=== PATIENT | female | born 1960 | race Caucasian/White ===

== ENCOUNTER 2017-09-17 14:18 | Inpatient (IN) | payer BC ==
[2017-09-17] MEDS ORDERED: ONDANSETRON 4 MG/2 ML VIAL IVPUSH ONE (14:32)
--- NOTE | 2017-09-17 14:44 | PDOC ---
Attending Attestation - Resident Resident Name: Gregory Trejo - ED Attending Attestation I have performed the following: I have examined & evaluated the patient, The case was reviewed & discussed with the resident, I agree w/resident's findings & plan, Exceptions are as noted - HPI HPI: 09/17/17 16:22 57 years old with no known past medical history seen in emergency department earlier today for severe back pain with normal labs negative CTA return to home developed lightheadedness dizziness headache and near syncope return to the emergency department. Symptoms occurred at rest no clear exacerbating or alleviating factors patient currently asymptomatic - Physicial Exam PE: 09/17/17 16:23 Vitals: Triage Vital signs reviewed General Appearance: no acute distress, well nourished well developed, Head: Atraumatic, Eyes: Pupils equal reactive round, extraocular movement intact Neck: Supple;No Nucal rigidity Chest Wall: Nontender Cardiac: Regular rate and rhythym, no murmurs, no rubs, no gallops, Lungs: Clear to auscultation bilateral, good air movement bilaterally, Abdomen: Soft, non distended, normal bowel sounds, non tender to palpation Extremities: Full range of motion to all extremities, no cyanosis, clubbing, or edema Skin: Warm and dry, no rashes or lesions, no rash, no petechiae Neuro: AOX3; Cranial Nerves 2-12 grossly intact, Strength intact to all extremities, Sensation intact to all extremities,gait normal Psych: normal mood, normal affect - Medical Decision Making 09/17/17 16:24 Second visit to the emergency department today. Patient again noted to be hypertensive. We'll treat hypertension with IV labetalol will observe overnight for hydration and further management of near syncope. Repeat examination normal neurologic examination still with some back discomfort but low suspicion for acute surgical pathology given previously negative CTA. Repeat EKG no ST elevations no T-wave inversions incomplete right bundle-branch biphasic T-wave inversion V3 Interpreted by me
--- NOTE | 2017-09-17 15:05 | PDOC ---
History of Present Illness - General Chief Complaint: Nausea Stated Complaint: HIGH BLOOD PRESSURE Time Seen by Provider: 09/17/17 14:31 History Source: Patient Exam Limitations: No Limitations - History of Present Illness Initial Comments: 09/17/17 14:33 Patient is a 57F with no significant medical history here today complaining of nausea and vomiting. She was seen earlier in the ED for back pain and hypertension. Patient was evaluated with cbc, cmp, trop, ekg, cxr, cta abdomen. All tests were normal. Patient was given morphine in the ED in the beginning of her visit. Patient states that she felt dizzy with a headache, then vomited. She states that she now feels fine. Denies chest pain, shortness of breath. States that she's still having back pain. Past History - Past Medical History Allergies/Adverse Reactions: Allergies Allergy/AdvReac Type Severity Reaction Status Date / Time No Known Allergies Allergy Verified 09/17/17 07:34 Home Medications: Ambulatory Orders NK [No Known Home Medication] 09/17/17 COPD: No - Suicide/Smoking/Psychosocial Hx Smoking History: Never smoked Have you smoked in the past 12 months: No Information on smoking cessation initiated: No Hx Alcohol Use: No Drug/Substance Use Hx: No Substance Use Type: None Review of Systems - Review of Systems Comments:: 09/17/17 15:05 GENERAL/CONSTITUTIONAL: No fever or chills. HEAD, EYES, EARS, NOSE AND THROAT: No change in vision. No sore throat. CARDIOVASCULAR: No chest pain or shortness of breath RESPIRATORY: No cough, wheezing, or hemoptysis. GASTROINTESTINAL: Positive for nausea, vomiting. Negative for diarrhea or constipation. GENITOURINARY: No dysuria, frequency, or change in urination. MUSCULOSKELETAL: No joint or muscle swelling or pain. Positive for back pain. SKIN: No rash NEUROLOGIC: No headache, vertigo, loss of consciousness, or change in strength/ sensation. HEMATOLOGIC/LYMPHATIC: No anemia, easy bleeding, or history of blood clots. ALLERGIC/IMMUNOLOGIC: No hives or skin allergy. *Physical Exam - Vital Signs Last Vital Signs Temp Pulse Resp BP Pulse Ox 97.1 F L 85 20 200/103 100 09/17/17 14:29 09/17/17 14:29 09/17/17 14:29 09/17/17 14:29 09/17/17 14:29 - Physical Exam Comments: 09/17/17 15:06 GENERAL: Awake, alert, and fully oriented, in no acute distress HEAD: No signs of trauma, normocephalic, atraumatic EYES: PERRLA, EOMI, sclera anicteric, conjunctiva clear ENT: Auricles normal inspection, hearing grossly normal, nares patent, oropharynx clear without exudates. Moist mucosa LUNGS: No distress, speaks full sentences, clear to auscultation bilaterally HEART: Regular rate and rhythm, normal S1 and S2, no murmurs, rubs or gallops, peripheral pulses normal and equal bilaterally. ABDOMEN: Soft, nontender, normoactive bowel sounds. No guarding, no rebound. No masses EXTREMITIES: Normal inspection, Normal range of motion, no edema. No clubbing or cyanosis. NEUROLOGICAL: Cranial nerves II through XII grossly intact. Normal speech, no focal sensorimotor deficits SKIN: Warm, Dry, normal turgor, no rashes or lesions noted. ED Treatment Course - LABORATORY CBC & Chemistry Diagram: 09/17/17 18:20 Medical Decision Making - Medical Decision Making 09/17/17 15:06 Patient is 57F with no significant medical history here today with hypertension , nausea, vomiting, back pain. Vital signs notable for hypertension to 200 systolic. Patient is bounce back who has already received large workup. Will evaluate with EKG, start IV, and give zofran. Will obs. Headache resolved. EKG shows normal sinus rhythm with RSR pattern. QRS/NE/QTc normal. No ST elevation/depression. No significant t wave abnormalities. When compared to EKG from earlier today, only change is t wave pattern in V3, most likely due to lead placement. Will admit to hospitalist, will give 10mg labetalol for HTN. *DC/Admit/Observation/Transfer Diagnosis at time of Disposition: Vomiting - Discharge Dispostion Condition at time of disposition: Stable Admit: Yes - Referrals - Patient Instructions - Post Discharge Activity
[2017-09-17] MEDS ORDERED: SODIUM CHLORIDE 1,000 ML IV STA (15:11)
[2017-09-17] MEDS ORDERED: ONDANSETRON 4 MG/2 ML VIAL ONE (15:18)
[2017-09-17] MEDS ORDERED: LABETALOL HCL 5 MG/1 ML (100MG/20 ML VIAL) IVPUSH ONE ×2 (15:32→19:06)
[2017-09-17] MEDS ORDERED: LABETALOL HCL 5 MG/1 ML (200MG/40ML VIAL) IVPB ONE (15:58)
[2017-09-17] MEDS ORDERED: ACETAMINOPHEN 325 MG TABLET (FP) PO PRN (16:33)
--- NOTE | 2017-09-17 17:42 | PN ---
Teaching Attending Note Name of Resident: Ryland Philippe ATTENDING PHYSICIAN STATEMENT I saw and evaluated the patient. I reviewed the resident's note and discussed the case with the resident. I agree with the resident's findings and plan as documented. SUBJECTIVE: CC: N/V. HPI: charo 57 y/o lady with no known medical h/o or medical care who presented with N/V, and GARZA . Aprilfarhat cam to ER this am with R sided flank pain/back pain that started 2 days ago. blood work in ER was nL , sBP was 204, and was sent home after she was given pain meds, and after CTA did not show any Aortic dissection or acute abd etiology. Pt went home and started having bad GARZA ( worst in her life) , non bloody non bilious emesis,with light headedness . she denies any CP, SOB, palpitations, or abd pain . denies any fever , chills, dysuria , cold or hot intolerance she is in ER, she denies any GARZA at this time OBJECTIVE: NAD, AAox3 , pleasant and cooperative HEENT: NC. AT, symmetric face , MMM, no JVD CV: RRR, no MRG, noJVd , no delay between radial and femoral pulses. 2+ RP and symmetric Lungs: CTAB Ext: No edema, no erythema. Abd: soft, NT, ND, NL BS. Rectal by resident , no masses , brown stool , sent for OB Neuro: symmetric face , EOMi, round equal pupils reactive to light , uvula and tongue at mid line . strength 5/5 in upper and lwoer extremities proximally and distally, sensation to light touch NL . reflexes 2+ knee jerk and biceps b/l ASSESSMENT AND PLAN: charo 57 y/o lady with no known medical h/o or medical care who presented with N/V, and GARZA .she was found to have severely elevated BP 1- HTN urgency. labs form this am, don't indicate end organ damage. EKG with no signs of acute ischemia. trop NL in am , will repeat . no SOB or crackles or JVD to indicate acute pulm edema/heart failure. No acute CP to indicate thoracic aortic dissection. - Check trop - Repeat BUN/Cr . - check stat head CT to r/o edema /bleed - received 10 mg of Iv labetalol in ER with drop in BP to 189/ 91 at time of my evaluation. - goal of BP decrease 20 % in first 6 hrs. (SBP 170 by 10 pm ) - will start lisinopril if cr is still NL. otherwise will use labetalol po . likely will need more than one agent - likely she has untreated primary HTn, but with this severity secondary causes need to be r/o. coartcation of aorta is unlikely with no delay between radial and femoral pulses. no bruit over renal arteries. - check renin /angiotensin - A1c 2- h/o stomach caner in family. OB was sent . admit to tele with hTN urgency .
[2017-09-17] MEDS ORDERED: oxyCODONE HCL 5 MG TABLET PO PRN (18:10)
[2017-09-17] MEDS ORDERED: CYCLOBENZAPRINE HCL 5 MG TABLET PO SCH (18:15)
[2017-09-17] MEDS ORDERED: CYCLOBENZAPRINE HCL 10 MG TABLET (FP) ONE ×2 (18:21→20:00)
[2017-09-17] MEDS ORDERED: ACETAMINOPHEN 325 MG TABLET (FP) ONE ×2 (18:21→18:43)
--- NOTE | 2017-09-17 18:32 | HP ---
CHIEF COMPLAINT:N/V ,sever headache, lightheadedness PCP:no PCP HISTORY OF PRESENT ILLNESS: 57 year old female with no pmhx and no recent health care who presented to the hospital due to N/V and sever headache, she was found to have elevated blood pressure in ER 204/100 and was admitted to tele. pt reprots worse headache of her life, B/L non proceeding with aura or any warning symptoms , denies any incontinence or seizure symptoms. pt came to ER earlier today due to 2 days history of back pain local in right flank and non radiating to lower extremity. started yesterday after she was cleaning her house. 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 she never had such pain before . her lab was normal and her CTA was negative for acute dissection , pt has elevated bp in 200/100 was given morphine and send home. She denies any fever, chills , sore throat , sick contact, recent travel , denies any chest pain, sob, or palpitation denies any abdominal pain, D/C, no urinary symptoms.reports sometimes swelling in hr right leg , she is and has 3 kids, she is house , did not see a doctor since her last 20 years ago. ER course was notable for: (1)cbc, cmp (2)EKG NSR (3)Labetolol 10 Recent Travel:denies PAST MEDICAL HISTORY:none PAST SURGICAL HISTORY:none Social History: Smoking:never Alcohol:never Drugs: never Family History: Allergies No Known Allergies Allergy (Verified 09/17/17 07:34) HOME MEDICATIONS: Home Medications Medication Instructions Recorded NK [No Known Home Medication] 09/17/17 REVIEW OF SYSTEMS CONSTITUTIONAL: Absent: fever, chills, diaphoresis, generalized weakness, malaise, loss of appetite, weight change HEENT: Absent: rhinorrhea, nasal congestion, throat pain, throat swelling, difficulty swallowing, mouth swelling, ear pain, eye pain, visual changes CARDIOVASCULAR: Absent: chest pain, syncope, palpitations, irregular heart rate, lightheadedness , peripheral edema RESPIRATORY: Absent: cough, shortness of breath, dyspnea with exertion, orthopnea, wheezing, stridor, hemoptysis GASTROINTESTINAL: Absent: abdominal pain, abdominal distension, nausea, vomiting, diarrhea, constipation, melena, hematochezia GENITOURINARY: Absent: dysuria, frequency, urgency, hesitancy, hematuria, flank pain, genital pain MUSCULOSKELETAL: Absent: myalgia, arthralgia, joint swelling, back pain, neck pain SKIN: Absent: rash, itching, pallor HEMATOLOGIC/IMMUNOLOGIC: Absent: easy bleeding, easy bruising, lymphadenopathy, frequent infections ENDOCRINE: Absent: unexplained weight gain, unexplained weight loss, heat intolerance, cold intolerance NEUROLOGIC: Absent: headache, focal weakness or paresthesias, dizziness, unsteady gait, seizure, mental status changes, bladder or bowel incontinence PSYCHIATRIC: Absent: anxiety, depression, suicidal or homicidal ideation, hallucinations. PHYSICAL EXAMINATION Vital Signs - 24 hr 09/17/17 09/17/17 09/17/17 14:29 15:30 15:55 Temperature 97.1 F L Pulse Rate 85 Pulse Rate [ 110 H Apical] Respiratory 20 20 Rate Blood Pressure 200/103 Blood Pressure 211/105 [Left Arm] O2 Sat by Pulse 100 100 100 Oximetry (%) 09/17/17 09/17/17 16:29 17:53 Temperature 98.1 F Pulse Rate Pulse Rate [ 89 85 Apical] Respiratory 20 18 Rate Blood Pressure Blood Pressure 193/97 190/95 [Left Arm] O2 Sat by Pulse 100 99 Oximetry (%) GENERAL: Awake, alert, and fully oriented, in no acute distress. HEAD: Normal with no signs of trauma. EYES: Pupils equal, round and reactive to light, extraocular movements intact, sclera anicteric, conjunctiva clear.eye fundal exam with no retinal hemorrhage or cotton spots EARS, NOSE, THROAT: Ears normal, nares patent, oropharynx clear without exudates. Moist mucous membranes. NECK: Normal range of motion, supple without lymphadenopathy, JVD, LUNGS: Breath sounds equal, clear to auscultation bilaterally. No wheezes, and no crackles. No accessory muscle use. HEART: Regular rate and rhythm, normal S1 prominnent S2 without murmur, rub or gallop. ABDOMEN: Soft, nontender, not distended, normoactive bowel sounds, no guarding, no rebound, no masses. No hepatomegaly or splenomegaly. MUSCULOSKELETAL: Normal range of motion at all joints. No bony deformities or tenderness. No CVA tenderness. UPPER EXTREMITIES: 2+ pulses, warm, well-perfused. No cyanosis. No clubbing. No peripheral edema. LOWER EXTREMITIES: 2+ pulses, warm, well-perfused. No calf tenderness. No peripheral edema. NEUROLOGICAL: Cranial nerves II-XII intact. Normal speech. Normal gait.normal sphincter tone , strength 5/5 upper and lower ext, sensation intact, reflexes knee +2 , biceps +2 . PSYCHIATRIC: Cooperative. Good eye contact. Appropriate mood and affect. SKIN: Warm, dry, normal turgor, no rashes or lesions noted, normal capillary refill. Laboratory Results - last 24 hr 09/17/17 16:32 Stool Occult Blood Negative CBC, BMP 09/17/17 18:20 Current Medications Generic Name Dose Route Start Last Admin Trade Name Freq PRN Reason Stop Dose Admin Acetaminophen 650 mg 09/17/17 18:30 09/17/17 18:40 Tylenol - PO 650 mg QID KAYLAN Administration Cyclobenzaprine HCl 5 mg 09/17/17 18:15 Cyclobenzaprine Hcl PO DAILY KAYLAN Oxycodone HCl 5 mg 09/17/17 18:10 Roxicodone - PO Q6H PRN PAIN LEVEL 1 - 3 ASSESSMENT/PLAN: 57 year old female with no PMH and no recent health care who presented to the hospital due to N/V and sever headache was found to have hypertensive urgency and admitted to telemetry. # Hypertensive urgency * BP in ER this AM 204/100 was given pain killer and sent home * BP in second ER visit today 204/103 was given 10 IV labetolol drop it to 189/ 90 * EKG with no st, t wave canges * Likely due to essential HTN not diagnosed but will R/O secondary causes ( renal artery stenosis but no bruit and repeat BUN/Cr , coarctaion of the aorta unlikely, no delay in femoral to radial pulse, unlikely aortic dissection no chest pain) * ECHo cardiogram * Trop negative in AM will repeat * UA , renin /aldosteron ratio * admit to tele * TSH , HgbA1c , lipid panel * BUN/Cr 13/0.6 no kidney failure * CT head without contrast to r/o brain edema or stroke * goal to drop BP 20 % in first 6 hours 170/90 (around 10 pm ), will start oral lisinopril 40 mg daily , likely will need 2 meds # sever headache , * she reports worse headache in my life ,associated with lightheadedness , no previous headache history , * no headache at time of exam * Pain meds oxycodone PRN , tylenol schedule * Monitor blood pressure * CT head to R/o brain edema or bleeding or stroke . # back pain * right flank local non radiating * likely muscle strain , * flexaril 5 mg po bid * oxycodone 5 mg Q 4hr PRN * Tylenol 650 Q6hr schedule(help initiate the oxycodon effect ) * avoid NSAIDS # family h/o f stomach cancer * Fobt negative * f/u as out patient for colon cancer screening * # FEN * no standing fluids * E: monitor * N: NPO till CT head result , then low sodium diet if negative # Proph * DVts : early ambulation , scds # dispo: * admit to inpatient tele. Visit type - Emergency Visit Emergency Visit: Yes ED Registration Date: 09/17/17 Care time: The patient presented to the Emergency Department on the above date and was hospitalized for further evaluation of their emergent condition. - New Patient This patient is new to me today: Yes Date on this admission: 09/17/17 - Critical Care Critical Care patient: No Hospitalist Screening - Colonoscopy Questionnaire Colonoscopy Questionnaire: Colonoscopy Questionnaire - Patient: 50 - 75 years old and never had a screening colonoscopy: Yes History of colon or rectal polyps, or CA: Yes History of IBD, Crohn's disease or UC: Unknown History of abdominal radiation therapy as a child: No - Relative: 1 with colon or rectal CA, or polyps at age 60 or younger: Unknown Colon or rectal CA diagnosed at age 45 or younger: Unknown Multiple relatives with colon or rectal CA: No - Outcome: Screening Result: Positive Screen
--- NOTE | 2017-09-17 18:33 | EKG ---
Test Reason : Blood Pressure : / mmHG Vent. Rate : 081 BPM Atrial Rate : 081 BPM P-R Int : 166 ms QRS Dur : 090 ms QT Int : 412 ms P-R-T Axes : 055 035 039 degrees QTc Int : 478 ms NORMAL SINUS RHYTHM POSSIBLE LEFT ATRIAL ENLARGEMENT RSR' OR QR PATTERN IN V1 SUGGESTS RIGHT VENTRICULAR CONDUCTION DELAY LEFT VENTRICULAR HYPERTROPHY ABNORMAL ECG WHEN COMPARED WITH ECG OF 17-SEP-2017 07:58, NO SIGNIFICANT CHANGE WAS FOUND Confirmed by NATALIIA GRAF MD ([id number]) on 09/17/2017 6:32:46 PM Referred By: Confirmed By:NATALIIA GRAF MD
[2017-09-17] MEDS: ACETAMINOPHEN 325 MG TABLET (FP) PO SCH ×2 (18:40→22:00)
[2017-09-17 18:56] LABS: ANION GAP 9 (8-16); BLOOD UREA NITROGEN 13 mg/dL (7-18); CALCIUM 8.7 mg/dL (8.5-10.1); CHLORIDE 105 mmol/L (98-107); CO2 29 mmol/L (21-32); CREATININE 0.6 mg/dL (0.55-1.02); GLUCOSE,RANDOM 120 mg/dL (74-106); POTASSIUM 3.7 mmol/L (3.5-5.1); SODIUM 143 mmol/L (136-145)
[2017-09-17 19:06] LABS: URINE APPEARANCE CLEAR; URINE BILIRUBIN NEGATIVE (NEGATIVE); URINE COLOR STRAW; URINE GLUCOSE (UA) 1+ (NEGATIVE); URINE KETONE NEGATIVE (NEGATIVE); URINE LEUK ESTERASE NEGATIVE (NEGATIVE); URINE NITRITE NEGATIVE (NEGATIVE); URINE PROTEIN NEGATIVE (NEGATIVE); URINE UROBILINOGEN NEGATIVE mg/dL (0.2-1.0)
[2017-09-17 20:11] LABS: HEMATOCRIT 36.1 % (32.4-45.2); HEMOGLOBIN 12.2 GM/dL (10.7-15.3); MCH 30.2 pg (25.7-33.7); MCHC 33.9 g/dl (32.0-36.0); MEAN CELL VOLUME 89.2 fl (80-96); MEAN PLT VOLUME 8.6 fl (7.5-11.1); PLATELET COUNT 208 K/MM3 (134-434); RBC 4.04 M/mm3 (3.60-5.2); RDW 13.2 % (11.6-15.6); WHITE BLOOD COUNT 8.2 K/mm3 (4.0-10.0)
[2017-09-17] MEDS ORDERED: LISINOPRIL 20 MG TABLET (FP) PO ONE (21:01)
[2017-09-18 00:05] VITALS: BMI 19.6
[2017-09-18 07:20] LABS: ANION GAP 8 (8-16); BLOOD UREA NITROGEN 15 mg/dL (7-18); CALCIUM 8.5 mg/dL (8.5-10.1); CHLORIDE 106 mmol/L (98-107); CHOLESTEROL 177 mg/dL (50-200); CO2 28 mmol/L (21-32); CREATININE 0.8 mg/dL (0.55-1.02); GLUCOSE,RANDOM 87 mg/dL (74-106); MAGNESIUM 2.2 mg/dL (1.8-2.4); PHOSPHOROUS 4.9 mg/dL (2.5-4.9); POTASSIUM 3.7 mmol/L (3.5-5.1); SODIUM 142 mmol/L (136-145); TRIGLYCERIDES 44 mg/dL (35-160)
[2017-09-18 07:21] LABS: HDL CHOLESTEROL 76 mg/dL (40-60)
[2017-09-18 09:26] VITALS: PULSE 76
[2017-09-18] MEDS: ACETAMINOPHEN 325 MG TABLET (FP) PO SCH ×2 (09:32→14:18)
[2017-09-18] MEDS ORDERED: CYCLOBENZAPRINE HCL 10 MG TABLET (FP) PO SCH (09:41)
[2017-09-18] MEDS ORDERED: LISINOPRIL 20 MG TABLET (FP) PO SCH (10:00)
--- NOTE | 2017-09-18 14:57 | DS ---
Physical Examination Vital Signs: Vital Signs Temperature 98.2 F 09/18/17 09:25 Pulse Rate 76 09/18/17 09:25 Respiratory Rate 17 09/18/17 09:25 Blood Pressure 154/78 09/18/17 09:25 O2 Sat by Pulse Oximetry (%) 98 09/18/17 09:25 Findings/Remarks: no fever or chills. No GARZA . mild lower back pain , no radiation to LE . no visual changes , no GARZA , no weakness NAD, AAox3 , pleasant and cooperative HEENT: NC. AT, symmetric face , MMM, no JVD CV: RRR, no MRG , no delay between radial and femoral pulses. 2+ RP and symmetric Lungs: CTAB Ext: No edema, no erythema. Abd: soft, NT, ND, NL BS. No bruit over renal arteries Labs: CBC, BMP 09/17/17 20:08 09/18/17 05:05 Discharge Summary Reason For Visit: VOMITING Current Active Problems Hypertensive urgency (Acute) Vomiting (Acute) Hospital Course: pleasant 57 y/o lady with no known medical h/o or medical care who presented with N/V, and GARZA .earlier that day she presented to ER with lower back pain and HTN and was sent home after CTA did not show any aortic dissection . on her second presentation she was found to have SB P > 200 with severe GARZA , and thus she had CT of head with no evidence of bleed or edema . Her EKG did not show acute ischemic changes, Cr was nL , trop was nL , and she did not show any other signs of end organ damage with clear lungs . she was treated with IV labetalol pushes initially and then placed on lisinopril with good control of her BP. she will need Echo to evaluate for LVH , and EF as outpt . she will need to follow with PCP and card ( dr. Perea). also she will need to establish care with PCP ( referred to Dr. Philippe in resident clinic ) sh ew asprescribbed a blood pressure cuff to check her BP daily for her back pain, it was thought ot be due to muscles strain , prescribed tylenol and felxeril . she had nl neuro exam/rectal tone , and no red flags . Dispo : dc home condition : improved - time spent 40 min - f/u Dr. philippe , and Dr. Perea . - Pending tests: A1c to be followed after dc . Condition: Improved - Instructions Diet, Activity, Other Instructions: - you were diagnosed with severe hypertension . - please take Lisinopril daily in morning - check our blood pressure daily in am and take the log to the doctor . if blood pressure is > [address] Philippe, if it is < 100 call him as well - you can see Dr. Philippe in the clinic ( [facility]) . pleae schedule an appointment with him in1 week - you need echo for your heart to see the effect of chronic hypertension - you can follow with Dr. Perea , the heart doctor - please take low salt diet ( less than 1 tea spoon of salt daily , including ordered food ) - repor darcie GARZA to your doctor - take flexeril and tylenol for your back pain. try to avoid mortin /advil / ibuprofen due to possible effect on the kidneys in the setting of starting lisinopril - do not drive while on flexeril as it can make you drowsy - A1c ( test for diabees ) is still pending . dr. Philippe can follow that when you see him - do not exceed 4 mg of tylenol a day as it can damage your liver Good luck Referrals: Masoud Harris MD [Staff Physician] - 1 Week Heri Perea MD [Staff Physician] - Disposition: HOME - Home Medications Comprehensive Discharge Medication List: Ambulatory Orders Acetaminophen [Tylenol] 650 mg PO TID PRN #1 tablet 09/18/17 Cyclobenzaprine HCl [Flexeril -] 10 mg PO BID PRN #15 tablet 09/18/17 Medical Supply, Miscellaneous [Blood Pressure Cuff] 1 each [facility] DAILY #1 each 05/28 This patient is new to me today: No Emergency Visit: Yes ED Registration Date: 09/17/17 Care time: The patient presented to the Emergency Department on the above date and was hospitalized for further evaluation of their emergent condition. Critical Care patient: No - Discharge Referral Referred to [facility] Med P.C.: No
[2017-09-18 15:12] VITALS: BP 120/61; TEMP 97.8
--- NOTE | 2017-09-18 19:58 | EKG ---
Test Reason : Blood Pressure : / mmHG Vent. Rate : 073 BPM Atrial Rate : 073 BPM P-R Int : 176 ms QRS Dur : 094 ms QT Int : 418 ms P-R-T Axes : 064 044 054 degrees QTc Int : 460 ms NORMAL SINUS RHYTHM VOLTAGE CRITERIA FOR LEFT VENTRICULAR HYPERTROPHY RSR' OR QR PATTERN IN V1 SUGGESTS RIGHT VENTRICULAR CONDUCTION DELAY ABNORMAL ECG WHEN COMPARED WITH ECG OF 17-SEP-2017 14:44, T WAVE VARIATION Confirmed by NATALIIA GRAF MD ([id number]) on 09/18/2017 7:58:13 PM Referred By: RADHA MERCADO Confirmed By:NATALIIA GRAF MD
[2017-09-22 14:13] LABS: RENIN ACTIVITY(PRA) < 0.167 ng/mL/hr (0.167-5.380)
== END 2017-09-18 17:04 | disposition home or self-care (01) | DRG 305 ==
LOC: JER 14:18 → JERBED 15:50 → OBSVTOIN 16:35 → J4W 21:00
PROVIDERS: ADMIT Internal Medicine; ATTEND Internal Medicine
DX: I16.0 Hypertensive urgency (principal); R51 Headache; R11.2 Nausea with vomiting, unspecified; M54.5 Low back pain
CPT/HCPCS: 36415; 70450-TC; 71045-TC-FY; 74174-TC; 80048; 80053; 80061; 81003; 82088; 82272; 82550; 83036; 83721; 83735; 84100; 84244; 84443; 84484; 84702; 84703; 85025; 85027; 85610; 85730; 86850; 86900; 86901; 93005; 93010; 99284-25; G0378; J7030

== ENCOUNTER 2022-10-05 05:20 | Day surgery (SDC) | payer BC ==
[2022-10-01 09:43] VITALS: BMI 17.5
[2022-10-05 09:11] VITALS: TEMP 98
[2022-10-05 11:44] VITALS: BP 119/57; PULSE 78; RESP 14
== END 2022-10-05 09:25 | disposition home or self-care (01) ==
LOC: JASU-ENDO 05:20
PROVIDERS: ATTEND Internal Medicine Gastroenterology
PROC: 0DJD8ZZ Inspection of Lower Intestinal Tract, Via Natural or Artificial Opening Endoscopic (ICD-10-PCS; principal; 2022-10-05 08:00)
DX: Z12.11 Encounter for screening for malignant neoplasm of colon (principal); K64.8 Other hemorrhoids

== ENCOUNTER 2022-10-12 04:30 | Day surgery (SDC) | payer BC ==
[2022-10-06 12:26] VITALS: BMI 17.5
[2022-10-12 10:04] VITALS: TEMP 98.2
[2022-10-12 11:19] VITALS: BP 127/65; PULSE 89; RESP 18
[2022-10-12 12:05] LABS: CALCIUM 9.7 mg/dL (8.5-10.1)
[2022-10-12 12:06] LABS: ALBUMIN 4.1 g/dl (3.4-5.0); BLOOD UREA NITROGEN 24.9 mg/dL (7-18)
[2022-10-12 12:09] LABS: CREATININE 0.7 mg/dL (0.55-1.3)
[2022-10-12 12:10] LABS: BILIRUBIN,TOTAL 1.1 mg/dL (0.2-1)
[2022-10-12 12:11] LABS: TOT PROT 7.1 g/dl (6.4-8.2)
== END 2022-10-12 11:11 | disposition home or self-care (01) ==
LOC: JASU-ENDO 04:30
PROVIDERS: ATTEND Internal Medicine Gastroenterology
PROC: 0DB78ZX Excision of Stomach, Pylorus, Via Natural or Artificial Opening Endoscopic, Diagnostic (ICD-10-PCS; 2022-10-12)
PROC: 0DB68ZX Excision of Stomach, Via Natural or Artificial Opening Endoscopic, Diagnostic (ICD-10-PCS; 2022-10-12)
PROC: 0DB98ZX Excision of Duodenum, Via Natural or Artificial Opening Endoscopic, Diagnostic (ICD-10-PCS; principal; 2022-10-12 09:15)
DX: K29.80 Duodenitis without bleeding (principal); K29.50 Unspecified chronic gastritis without bleeding; B96.81 Helicobacter pylori [H. pylori] as the cause of diseases classified elsewhere; Z80.0 Family history of malignant neoplasm of digestive organs
CPT/HCPCS: 36415; 80053; 88305-TC; 88342-TC